=== PATIENT | male | born 1925 | race Caucasian/White ===

== ENCOUNTER → 2016-08-31 | Outpatient (CLI) | payer MEDICARE, BC ==
[~2016-08-31] MED LIST: IOHEXOL 300MG/ML 150 ML BTL ONE
--- NOTE | 2016-08-31 14:00 | RADRPT ---
AMENDMENT: 08/31/2016 3:27:56 PM Fred Sow MD Fluoroscopy time is 0.1 minute. Patient Name: MARANDA LOCK Report Date: 31-Aug-2016 13:59.00 Patient Date: 1925 Report Status: S Accession No.: [id number] Reason for study: #reason_for_study# [place] [id number] Radiology Main Line: [phone] DIAGNOSTIC IMAGING REPORT Patient: ASHVIN LOW : 1925 Age: 89 Sex: M MR #: [id number] DOS: 08/31/16 0000 Ordering MD: BROCK RIVERA MD Location: [facility] Room/Bed: PROCEDURE: XR cholecystogram. CLINICAL INDICATION: Abdominal pain. Cholecystostomy tube. TECHNIQUE: Two views. AP supine and AP erect. COMPARISON: None. FINDINGS: A preliminary images of the abdomen demonstrates a cholecystostomy tube in the right upper quadrant and a Denny catheter in the bladder. Approximately 10 ml of Omnipaque-300 was injected through the cholecystostomy tube and multiple fluoroscopic guided digital images of the right upper quadrant were obtained. Contrast enters a probable cavity adjacent to the gallbladder, then enters the gallbladder. Contrast also enters the cystic duct, the common bile duct, and intrahepatic bile ducts. Contrast rapidly flows into the duodenum. There is no filling defect. IMPRESSION: 1. The cholecystostomy tube is present in the right upper quadrant and the tip may be in a cavity adjacent to the gallbladder. However, the cavity communicates with the gallbladder and contrast enters the entire biliary system. There is no filling defect to suggest stone. RPTAT: QQ .Fred Sow MD, Date Time Electronically viewed and signed by .Fred Sow MD, on 08/31/2016 13:59 .R/ CC: BROCK RIVERA MD Radiologist : .Fred Sow MD, MD Date Time Electronically viewed and signed by .Fred Sow MD, MD on 08/31/2016 15:28 .R/
== END | disposition home or self-care (01) ==
LOC: RAD 09:18
PROVIDERS: ATTEND Surgery
DX: K81.9 Cholecystitis, unspecified (principal)
CPT/HCPCS: 74320; Q9967